=== PATIENT | female | born 1940 | race Caucasian/White ===

== ENCOUNTER 2017-12-08 05:01 | Outpatient (CLI) | payer MEDICARE, OTHER | END 2017-12-08 23:59 | disposition home or self-care (01) | LOC: DIABETIC 05:01 | PROVIDERS: ATTEND Specialist | DX: E11.9 Type 2 diabetes mellitus without complications (principal) | CPT/HCPCS: G0108 ==

== ENCOUNTER 2022-12-19 12:18 | Inpatient (IN) | payer MEDICARE, OTHER ==
[~2022-12-19] VITALS: Ht 157.5 cm; Wt 75.0 kg
[2022-12-19 14:04] LABS: BASOPHILS % (AUTO) 0.2 % (0-1); EOSINOPHILS % (AUTO) 0.1 % (0-6); HEMATOCRIT 42.6 % (35.0-45.0); HEMOGLOBIN 14.3 g/dl (12.0-16.0); LYMPHOCYTES # (AUTO) 0.9 X10'3 (1.1-4.8); MEAN CORPUSCULAR HEMOGLOBIN 31.9 PG (27.0-31.0); MEAN CORPUSCULAR HGB CONC 33.6 g/dL (33.0-36.5); MEAN CORPUSCULAR VOLUME 94.9 FL (78-98); MEAN PLATELET VOLUME 8.3 FL (7.4-10.4); MONOCYTES # (AUTO) 0.6 X10'3 (0-0.9); MONOCYTES % (AUTO) 3.8 % (2-12); NEUTROPHILS # (AUTO) 13.3 X10'3 (1.8-7.7); NEUTROPHILS % (AUTO) 89.9 % (42-75); PLATELET COUNT 211 X10'3 (140-440); RED BLOOD COUNT 4.49 X10'6 (4.20-5.60); RED CELL DISTRIBUTION WIDTH 12.7 % (11.5-14.5); WHITE BLOOD COUNT 14.8 X10'3 (4.5-11.0)
[2022-12-19 14:13] LABS: CLARITY,URINE CLEAR (Clear); COLOR,URINE YELLOW (Yellow); GLUCOSE, URINE NEGATIVE (Neg); KETONES,URINE 40 mg/dl (Neg); LEUKOCYTE ESTERASE ,URINE NEGATIVE (Neg); NITRITES, URINE NEGATIVE (Neg); OCCULT BLOOD,URINE MODERATE (Neg); PROTEIN,URINE NEGATIVE (Neg); UROBILINOGEN,URINE 0.2 E.U/dL (0.2-1.0)
[2022-12-19 14:19] LABS: ALANINE AMINOTRANSFERASE 38 U/L (12-78); ALBUMIN 4.3 G/DL (3.4-5.0); ALBUMIN/GLOBULIN RATIO 1.3 (1.1-1.5); ALKALINE PHOSPHATASE 77 IU/L (46-116); ANION GAP 9 (8-16); ASPARTATE AMINO TRANSFERASE 28 U/L (10-37); BILIRUBIN,TOTAL 0.6 MG/DL (0.1-1.0); BLOOD UREA NITROGEN 20 MG/DL (7-18); BUN/CREATININE RATIO 23.3 (6.6-38.0); CALCIUM 9.2 MG/DL (8.5-10.1); CHLORIDE 97 MMOL/L (99-107); CREATININE 0.86 MG/DL (0.40-0.90); GLUCOSE 205 MG/DL (70-104); LIPASE 80 U/L (73-393); SODIUM 135 MMOL/L (135-145); TOTAL CARBON DIOXIDE 29.1 MMOL/L (24-32); TOTAL PROTEIN 7.6 G/DL (6.4-8.2); eGFR 63 ML/MIN
[2022-12-19 14:25] LABS: UA COLLECTION TYPE CLN CATCH MIDSTREAM
[2022-12-19 14:26] LABS: BACTERIA,URINE FEW /HPF (Neg); SQUAMOUS EPITHELIAL CELL,UR FEW /LPF (FEW); WBC,URINE 0-4 /HPF (0-4)
[2022-12-19 14:27] LABS: HYALINE CASTS 0-3 /LPF (NEGATIVE)
[2022-12-19] MEDS ORDERED: normal saline 1000ML IV soln IVB ONE (18:40)
[2022-12-19] MEDS ORDERED: morphine 4 MG/ML inj SYRINge IV ONE (18:40)
[2022-12-19] MEDS ORDERED: ondansetron/PF 4mg/2ml inj IV ONE (18:40)
[2022-12-19] MEDS ORDERED: iohexol 300mg/ml 100ml inj. ONE (18:44)
[2022-12-19] MEDS: morphine 2 MG/ML inj. syringe IV PRN ×2 (19:47→20:03)
[2022-12-19] MEDS ORDERED: ketorolac tromethamine 15mg/ml inj. IV ONE (20:20)
[2022-12-19] MEDS ORDERED: tamsulosin 0.4mg capsule PO ONE (20:20)
[2022-12-19] MEDS ORDERED: proCHLORperazine 10 MG/2 ml inj IV ONE (20:20)
[2022-12-19] MEDS ORDERED: magnesium Cl slow-release 64mg tablet PO PRN (20:35)
[2022-12-19] MEDS ORDERED: HYDROcodone/acetaminophen 10/325mg tab PO PRN (20:35)
[2022-12-19] MEDS ORDERED: HYDROmorphone/PF 0.2 MG/ML SYRINGE IV PRN (20:35)
[2022-12-19] MEDS ORDERED: HYDROcodone/acetaminophen 5mg/325mg tablet PO PRN (20:35)
[2022-12-19] MEDS ORDERED: magnesium 4gm in 100ml NS 100 ML IV PRN (20:35)
[2022-12-19] MEDS ORDERED: potassium Cl 40MEQ/1/2NS 520ml 520 ML IV PRN (20:35)
[2022-12-19] MEDS ORDERED: acetaminophen 325mg tablet PO PRN ×2 (20:35)
[2022-12-19] MEDS ORDERED: morphine 2 MG/ML inj. syringe IV PRN ×2 (20:35)
[2022-12-19] MEDS ORDERED: potassium Cl 20 mEq SR tablet PO PRN ×2 (20:35)
[2022-12-19] MEDS ORDERED: ondansetron/PF 4mg/2ml inj IV PRN (20:35)
[2022-12-19] MEDS ORDERED: HYDROmorphone inj. 0.5 MG/0.5 ML DISP.SYRIN IV PRN (20:35)
--- NOTE | 2022-12-19 20:58 | NUR ---
2030 assumed care of pt. PIV in place IVF infusing.
--- NOTE | 2022-12-19 20:58 | NUR ---
1729 Admitting MD at bedside. Monitor leads on and functioning. See general assessment for complete details.
[2022-12-19] MEDS ORDERED: temazepam 15mg capsule PO PRN (21:00)
[2022-12-19] MEDS ORDERED: tamsulosin 0.4mg capsule PO SCH (21:00)
[2022-12-19] MEDS: normal saline 1000ml 1,000 ML IV SCH (21:17)
--- NOTE | 2022-12-19 21:49 | NUR ---
2141 pt medicated with diluadid 0.5mg iv 06/21 LLQ pain. IVF infusing at 100ml/hr via pump. Pt placed on 2 L O2 via nc post dilaudid admin for sats 90-92 %. Recieved room assisgnment surgical 357 A report called to receiving GUS Jones.
[2022-12-19 22:10] VITALS: BP 150/59
[2022-12-19] MEDS ORDERED: RAMI10CA69 PO (23:23)
[2022-12-19] MEDS ORDERED: OMEP20TA43 PO (23:23)
[2022-12-20] VITALS (19 sets, daily range): BP systolic 110–148; BP diastolic 58–74
[2022-12-20] MEDS: normal saline 1000ml 1,000 ML IV SCH ×2 (04:40→16:35)
--- NOTE | 2022-12-20 06:45 | NUR ---
Patient in room [facility]. I have received report from GUS Jones and had the opportunity to ask questions and assume patient care.
[2022-12-20 07:02] LABS: BASOPHILS % (AUTO) 0.3 % (0-1); EOSINOPHILS % (AUTO) 0.1 % (0-6); HEMATOCRIT 37.6 % (35.0-45.0); HEMOGLOBIN 12.7 g/dl (12.0-16.0); LYMPHOCYTES # (AUTO) 1.4 X10'3 (1.1-4.8); LYMPHOCYTES % (AUTO) 15.9 % (21-51); MEAN CORPUSCULAR HEMOGLOBIN 32.2 PG (27.0-31.0); MEAN CORPUSCULAR HGB CONC 33.7 g/dL (33.0-36.5); MEAN CORPUSCULAR VOLUME 95.5 FL (78-98); MEAN PLATELET VOLUME 8.4 FL (7.4-10.4); MONOCYTES # (AUTO) 0.8 X10'3 (0-0.9); MONOCYTES % (AUTO) 8.5 % (2-12); NEUTROPHILS # (AUTO) 6.7 X10'3 (1.8-7.7); NEUTROPHILS % (AUTO) 75.2 % (42-75); PLATELET COUNT 177 X10'3 (140-440); RED BLOOD COUNT 3.94 X10'6 (4.20-5.60); RED CELL DISTRIBUTION WIDTH 12.8 % (11.5-14.5); WHITE BLOOD COUNT 8.9 X10'3 (4.5-11.0)
--- NOTE | 2022-12-20 07:02 | NUR ---
Patient in room [facility] 357. I have received report from GUS Cardoso and had the opportunity to ask questions and assume patient care.
[2022-12-20 07:27] LABS: ALANINE AMINOTRANSFERASE 29 U/L (12-78); ALBUMIN 3.4 G/DL (3.4-5.0); ALBUMIN/GLOBULIN RATIO 1.2 (1.1-1.5); ALKALINE PHOSPHATASE 58 IU/L (46-116); ANION GAP 8 (8-16); ASPARTATE AMINO TRANSFERASE 24 U/L (10-37); BILIRUBIN,TOTAL 0.5 MG/DL (0.1-1.0); BLOOD UREA NITROGEN 14 MG/DL (7-18); BUN/CREATININE RATIO 17.7 (6.6-38.0); CALCIUM 8.4 MG/DL (8.5-10.1); CHLORIDE 106 MMOL/L (99-107); CREATININE 0.79 MG/DL (0.40-0.90); GLUCOSE 122 MG/DL (70-104); POTASSIUM 3.5 MMOL/L (3.5-5.1); SODIUM 141 MMOL/L (135-145); TOTAL CARBON DIOXIDE 26.8 MMOL/L (24-32); TOTAL PROTEIN 6.2 G/DL (6.4-8.2); eGFR 70 ML/MIN
[2022-12-20] MEDS ORDERED: pantoprazole 40mg Tablet.DR PO SCH (07:30)
[2022-12-20] MEDS ORDERED: CefTRIAXone 2gm/D5W 50ml BAG 50 ML IV SCH (08:00)
[2022-12-20] MEDS ORDERED: lisinopril 10 MG tablet PO SCH (08:00)
[2022-12-20] MEDS ORDERED: heparin, porcine 5000 units/ml vial SQ SCH (08:00)
[2022-12-20] MEDS ORDERED: iohexol 300 MG/1 ML 50ml polymer ONE (11:57)
[2022-12-20] MEDS ORDERED: ketorolac tromethamine 15mg/ml inj. IV ONE (12:10)
[2022-12-20] MEDS ORDERED: acetaminophen 1,000mg/100ml IV 100 ML IV PRN (12:10)
[2022-12-20] MEDS ORDERED: ondansetron/PF 4mg/2ml inj IV PRN (12:10)
[2022-12-20] MEDS ORDERED: morphine 2 MG/ML inj. syringe IV PRN (12:10)
[2022-12-20] MEDS ORDERED: proCHLORperazine 10 MG/2 ml inj IV PRN (12:10)
[2022-12-20] MEDS ORDERED: hydrALAZINE 20mg/ml inj. IV PRN (12:10)
[2022-12-20] MEDS ORDERED: labetalol 20mg/4ml (5mg/ml) syringe IV PRN (12:10)
[2022-12-20] MEDS ORDERED: HYDROmorphone/PF 0.2 MG/ML SYRINGE IV PRN ×2 (12:10)
[2022-12-20] MEDS ORDERED: morphine 4 MG/ML inj SYRINge IV PRN (12:10)
[2022-12-20] MEDS ORDERED: ringers solution, lacted 1,000 ML IV SCH (12:10)
[2022-12-20] MEDS ORDERED: meperidine/PF 25mg/ml syringe IV PRN (12:10)
[2022-12-20] MEDS ORDERED: sevoflurane 250ml liquid IH ONE (12:17)
[2022-12-20] MEDS ORDERED: fentaNYL/PF 50MCG/1 ML 2ML syringe ONE (12:21)
[2022-12-20] MEDS ORDERED: midazolam 1 mg/ML 2ml injection ONE (12:22)
[2022-12-20 12:29] LABS: PRE OP PARTIAL THROMB. TIME 28 SECONDS (22-32)
[2022-12-20] MEDS ORDERED: dexamethasone sod phosphate 4mg/ml inj. ONE (12:56)
[2022-12-20] MEDS ORDERED: LIDOcaine 2% (20mg/ml) 5ml vial ONE (12:56)
[2022-12-20] MEDS ORDERED: ondansetron/PF 4mg/2ml inj ONE (12:56)
[2022-12-20] MEDS ORDERED: propofol inj 20 ML IV ONE (12:56)
--- NOTE | 2022-12-20 14:20 | NUR ---
Received report from MAINSPRING TORQUE TESTERMalou
--- NOTE | 2022-12-20 14:45 | NUR ---
PATIENT MEETS DISCHARGE CRITERIA. VSS. PATIENT ALERT AND ORIENTED, STATES SOME PRESSURE BUT NO PAIN. GAVE REPORT TO GUS URIBE. SENT BACK TO SURGICAL Addendum: 12/20/22 at 1810 by Malou Wills RN Amended: Links added.
[2022-12-20] MEDS ORDERED: HYDR-3972 PO (15:49)
[2022-12-20] MEDS ORDERED: LEVO750T68 PO (15:49)
--- NOTE | 2022-12-20 18:00 | NUR ---
DC inst provided to pt & pt's . IV x2 DC'd, tips intact. All belongings sent w/pt. WC to vehicle.
--- NOTE | 2022-12-20 18:08 | NUR ---
Received from OR via , accompanied by Anesthesiologist DR TAI and report given by Anesthesiolgist. ON MASK 10 LITERS, N/S RUNNING. IV IN RFA 20G, SOME ISSUES. PUT A 22G IN LEFT AC. PATIENT IS RESTING AND STATES NO PAIN. Addendum: 12/20/22 at 1810 by Malou Wills RN Amended: Links added.
== END 2022-12-20 18:00 | disposition home or self-care (01) | DRG 661 ==
LOC: ER 12:18 → ED HOLD 20:44 → EDBEDREQ 21:18 → SUR 3N 22:00
PROVIDERS: ADMIT Internal Medicine; ATTEND Family Medicine
PROC: BW211ZZ Computerized Tomography (CT Scan) of Abdomen and Pelvis using Low Osmolar Contrast (ICD-10-PCS; 2022-12-19)
PROC: BT141ZZ Fluoroscopy of Kidneys, Ureters and Bladder using Low Osmolar Contrast (ICD-10-PCS; 2022-12-20)
PROC: 0T788DZ Dilation of Bilateral Ureters with Intraluminal Device, Via Natural or Artificial Opening Endoscopic (ICD-10-PCS; principal; 2022-12-20 12:17)
DX: N13.2 Hydronephrosis with renal and ureteral calculous obstruction (principal); E78.00 Pure hypercholesterolemia, unspecified; Z66 Do not resuscitate; I10 Essential (primary) hypertension; K57.30 Diverticulosis of large intestine without perforation or abscess without bleeding; K76.89 Other specified diseases of liver; R16.0 Hepatomegaly, not elsewhere classified; Z79.899 Other long term (current) drug therapy
CPT/HCPCS: 36415; 71045; 73020; 74176; 74177; 74420; 80053; 81001; 82948; 83605; 83690; 85025; 85610; 85730; 87040; 87081; 93005; 96361; 96374; 96375; 96376; A4615; A4618; C1758; C1769; C2617; G0378; J0131; J0696; J0780; J1100; J1170; J1644; J1885; J2250; J2270; J2405; J2704; J3010; J3490; J7030; J7120; Q9967

== ENCOUNTER 2025-06-05 11:37 | Outpatient (CLI) | payer MEDICARE, OTHER ==
[~2025-06-05 11:37] MED LIST: HYDR-3972 PO; LEVO750T68 PO; OMEP20TA43 PO; RAMI10CA78 PO
--- NOTE | 2025-06-05 13:26 | VASCULAR REPORT ---
Right lower extremity venous duplex Clinical History: edema Comparison: None Findings: Duplex Doppler evaluation of the deep venous system of the right lower extremity from the common femo ral vein to the popliteal vein including color Doppler and spectral/pulsed waveform analysis was perf ormed. The bilateral common femoral vein demonstrates appropriate compressibility and waveform variability. There is compressibility/patency of the great saphenous vein at the proximal thigh. The femoral vein demonstrates appropriate compressibility and waveform variability. The deep femoral vein demonstrates appropriate compressibility and waveform variability. The popliteal vein demonstrates appropriate compressibility and waveform variability. There is normal compressibility at the tibioperoneal trunk. Impression: No right femoropopliteal venous thrombosis. If clinical concern/symptoms persist or worsen, short-interval follow-up study is suggested.
== END 2025-06-05 23:59 | disposition home or self-care (01) ==
LOC: VAS 11:37
PROVIDERS: ATTEND Specialist
DX: M79.604 Pain in right leg (principal); R22.41 Localized swelling, mass and lump, right lower limb
CPT/HCPCS: 93971